=== PATIENT | female | born 1975 | race Caucasian/White ===

== ENCOUNTER 2020-11-12 16:37 | Outpatient (CLI) | payer MEDICAID | END 2020-11-12 16:38 | disposition home or self-care (01) | LOC: COV 16:37 | PROVIDERS: ATTEND Family Medicine | DX: R05 Cough (principal); R53.83 Other fatigue; R07.0 Pain in throat; R09.81 Nasal congestion; J34.89 Other specified disorders of nose and nasal sinuses; Z20.828 Contact with and (suspected) exposure to other viral communicable diseases ==

== ENCOUNTER 2022-02-03 11:11 | Emergency (ER) | payer MEDICAID ==
[2022-02-03 11:19] VITALS: BP 108/61
[2022-02-03 11:36] LABS: BASOPHILS # (AUTO) 0.1 10^3/uL (0.0-0.1); BASOPHILS % (AUTO) 0.5 %; EOSINOPHILS % (AUTO) 0.1 %; HCT - HEMATOCRIT 41.7 % (37.0-47.0); HGB - HEMOGLOBIN 13.8 g/dL (12.0-16.0); LYMPHOCYTES # (AUTO) 1.1 10^3/uL (1.5-3.5); MEAN CORPUSCULAR HEMOGLOBIN 31.5 pg (27.0-31.0); MEAN CORPUSCULAR HGB CONC 33.1 g/dL (32.0-36.0); MEAN CORPUSCULAR VOLUME 95.2 fL (81.0-99.0); MEAN PLATELET VOLUME 9.8 fL (7.9-10.8); MONOCYTES # (AUTO) 0.5 10^3/uL (0.0-1.0); MONOCYTES % (AUTO) 5.4 %; NEUTROPHILS # (AUTO) 8.1 10^3/uL (1.5-6.6); NEUTROPHILS % (AUTO) 82.8 %; PLT - PLATELET COUNT 283 10^3/uL (130-450); RED BLOOD COUNT 4.38 10^6/uL (4.20-5.40); RED CELL DISTRIBUTION WIDTH 11.8 % (12.0-15.0); WHITE BLOOD COUNT 9.8 x10^3/uL (4.8-10.8)
[2022-02-03 11:50] LABS: ALBUMIN 3.8 g/dL (3.2-5.5); BILIRUBIN,TOTAL 0.5 mg/dL (0.2-1.0); CREATININE 0.9 mg/dL (0.4-1.0); POTASSIUM 3.7 mmol/L (3.5-5.0); TOTAL PROTEIN 7.5 g/dL (6.7-8.2)
[2022-02-03] MEDS ORDERED: AMOX/CLAV 875 MG/125 MG TABLET PO STA (13:14)
--- NOTE | 2022-02-03 13:16 | ED Physician Documentation ---
PD HPI ABD PAIN - Stated complaint Stated Complaint: ABD PX - Chief complaint Chief Complaint: Abd Pain - History obtained from History obtained from: Patient - Additional information Additional information: 46-year-old woman with history of recurrent diverticulitis. Current flare started 6 days ago and has not responded to herbal medication and low residue diet. She had a fever on the first day but not since. Has never had a colonoscopy. No abdominal surgeries in the past. Review of Systems Constitutional: reports: Fever. denies: Chills Cardiac: denies: Chest pain / pressure, Palpitations Respiratory: denies: Dyspnea, Cough PD PAST MEDICAL HISTORY - Present Medications Home Medications: Ambulatory Orders Medication Instructions Recorded Confirmed Amox/Clav 875/125 [Augmentin] 1 each PO TID #30 tablet 02/03/22 - Allergies Allergies/Adverse Reactions: Allergies Allergy/AdvReac Type Severity Reaction Status Date / Time No Known Drug Allergies Allergy Verified 02/03/22 11:19 PD ED PE NORMAL - Vitals Vital signs reviewed: Yes - General General: Alert and oriented X 3, No acute distress - Respiratory Respiratory: No respiratory distress - Abdomen Abdomen: Normal bowel sounds, Soft, Other (Very mild tenderness in the left lower quadrant without surgical signs) - Back Back: No CVA TTP, No spinal TTP - Derm Derm: Normal color, Warm and dry - Extremities Extremities: No edema, No calf tenderness / cord - Neuro Neuro: Alert and oriented X 3, Normal speech Results - Vitals Vitals: Vital Signs - 24 hr 02/03/22 11:15 Temperature 36.1 C L Heart Rate 95 Respiratory 16 Rate Blood Pressure 108/61 O2 Saturation 99 Oxygen O2 Source Room air - Labs Labs: Laboratory Tests 02/03/22 02/03/22 11:29 11:29 WBC 9.8 RBC 4.38 Hgb 13.8 Hct 41.7 MCV 95.2 MCH 31.5 H MCHC 33.1 RDW 11.8 L Plt Count 283 MPV 9.8 Neut # (Auto) 8.1 H Lymph # (Auto) 1.1 L [place] # (Auto) 0.5 Eos # (Auto) 0.0 Baso # (Auto) 0.1 Absolute Nucleated RBC 0.00 Nucleated RBC % 0.0 Sodium 133 L Potassium 3.7 Chloride 97 L Carbon Dioxide 27 Anion Gap 9.0 BUN 12 Creatinine 0.9 Estimated GFR (MDRD) 67 L Glucose 92 Calcium 9.0 Total Bilirubin 0.5 AST 15 ALT 13 Alkaline Phosphatase 42 Total Protein 7.5 Albumin 3.8 Globulin 3.7 Albumin/Globulin Ratio 1.0 Lipase 31 PD MEDICAL DECISION MAKING - ED course ED course: 46-year-old woman with what seems like a recurrent flare of diverticulitis. She declined CT scanning which I think is probably fine. Given that she is on day 6 and worsening despite appropriate dietary changes will start antibiotics. Departure - Departure Disposition: 01 Home, Self Care Clinical Impression: Diverticulitis of gastrointestinal tract Condition: Good Record reviewed to determine appropriate education?: Yes Instructions: ED Diverticulitis Prescriptions: Amox/Clav 875/125 [Augmentin] 1 each PO TID #30 tablet Comments: As discussed, you really should have a colonoscopy at some point, but given the current likely flare of diverticulitis should wait until a couple of months have passed without a flare. I sent your prescription electronically to [facility] in [place]. Return for new or worsening symptoms.
== END 2022-02-03 13:27 | disposition home or self-care (01) ==
LOC: ED 11:11
DX: K57.92 Diverticulitis of intestine, part unspecified, without perforation or abscess without bleeding (principal)
CPT/HCPCS: 36415; 80053; 83690; 85025; 99283